=== PATIENT | male | born 1985 | race Two or more races ===

== ENCOUNTER 2020-09-07 07:52 | Emergency (ER) | payer OTHER ==
[~2020-09-07] VITALS: Ht 165.1 cm; Wt 81.5 kg
[2020-09-07] MEDS ORDERED: KETOROLAC 30 MG/1 ML ONE (08:23)
[2020-09-07] MEDS ORDERED: ONDANSETRON 2MG/ML, 2ML ONE (08:23)
[2020-09-07 08:29] LABS: BASOPHILS % (AUTO) 0 % (0-1); EOSINOPHILS % (AUTO) 4 % (1-7); LYMPHOCYTES % (AUTO) 38 % (22-44); MD NO; MEAN CORPUSCULAR HEMOGLOBIN 30.9 pg (27.5-34.5); MEAN CORPUSCULAR HGB CONC 35.1 g/dL (33.2-36.2); MEAN PLATELET VOLUME 8.7 fL (7.4-10.4); MONOCYTES % (AUTO) 7 % (2-9); NEUTROPHILS % (AUTO) 51 % (42-75); PLATELET COUNT 246 x10^3/uL (130-400); RED BLOOD COUNT 5.29 x10^6/uL (4.38-5.82)
--- NOTE | 2020-09-07 08:30 | NUR ---
LOWER ABD PAIN STARTING THIS AM WITH VOMITING X2. PT VOMITING WITH THIS RN AND MD ENTERING ROOM. PT POSTIONED TO COMFORT. ATTACHED TO MONITORS. VSS. IV STARTED PT MEDIATED PER EMAR. DR. RICE EVALUATED. FAMILY AT BEDSIDE.
[2020-09-07 08:40] LABS: ALANINE AMINOTRANSFERASE 30 U/L (12-78); ALBUMIN 4.3 g/dL (3.4-5.0); ANION GAP 5 mmol/L (5-15); CHLORIDE 107 mmol/L (98-107); CREATININE 1.11 mg/dL (0.7-1.3)
[2020-09-07 08:42] LABS: ALKALINE PHOSPHATASE 77 U/L (45-117); BILIRUBIN,TOTAL 0.4 mg/dL (0.2-1.0)
[2020-09-07] MEDS ORDERED: SODIUM CHLORIDE FLUSH 10ML SYR IVF ONE (09:00)
[2020-09-07] MEDS ORDERED: KETOROLAC 30 MG/1 ML IVPush ONE (09:00)
[2020-09-07] MEDS ORDERED: ONDANSETRON 2MG/ML, 2ML IVPush ONE (09:00)
[2020-09-07 09:11] LABS: MICROSCOPIC INDICATED
--- NOTE | 2020-09-07 09:12 | NUR ---
PT TO CT.
[2020-09-07 10:14] VITALS: BP 113/68
--- NOTE | 2020-09-07 10:47 | NUR ---
Patient given discharge instructions and they have confirmed that they understand the instructions. Patient ambulatory with steady gait.
== END 2020-09-07 10:48 | disposition home or self-care (01) ==
LOC: ED 08:48
DX: N20.2 Calculus of kidney with calculus of ureter (principal); R10.32 Left lower quadrant pain
CPT/HCPCS: 36415; 74176; 80053; 81001; 85025; 99284